=== PATIENT | female | born 1930 | race African-American/Black ===

== ENCOUNTER 2016-09-07 21:30 | Inpatient (IN) | payer MEDICARE ==
[~2016-09-07] VITALS: Ht 165.1 cm; Wt 68.0 kg
[~2016-09-07 21:30] MED LIST: ARICEPT10 MG PO; ATARAX 25 MG TA25 MG PO; CALMOSEPTINE OI71 GM TOPICAL; COZAAR100 MG PO; FOLIC ACID1 MG PO; METHOTREXATE2.5 MG PO; PREDNISONE5 MG PO; TRIAMCINOLONE A60 M1 TP; TYLENOL W/CODEI1 TAB PO
[2016-09-07 22:16] LABS: BASOPHILS 0.3 % (0.0-2.0); EOSINOPHILS 3.3 % (0-7); HEMATOCRIT 30.1 % (36.0-48.0); HEMOGLOBIN 9.5 g/dL (12-16); IMMATURE GRANULOCYTES 0.6 % (0-5); LYMPHOCYTES 47.4 % (15-50); MCH 29.4 pg (26.0-34.0); MCHC 31.6 g/dL (31.0-37.0); MCV 93.2 fL (80.0-100.0); MEAN PLATELET VOLUME 10.3 fL (7.4-10.4); MONOCYTES 15.9 % (2-11); NEUTROPHILS 32.5 % (40-80); RBC 3.23 10x6/uL (4.00-5.40); RDW 15.1 % (11.5-14.5); WBC 3.3 10x3/uL (4.8-10.8)
[2016-09-07 22:24] LABS: PLATELET COUNT 122 10x3/uL (130-400)
[2016-09-07 22:39] LABS: ALBUMIN 3.2 g/dL (3.4-5.0); ANION GAP 16.6 mmol/L (8-16); BILIRUBIN - TOTAL 0.33 mg/dL (0.2-1.3); CALCIUM 9.6 mg/dL (8.5-10.1); CARBON DIOXIDE 21.3 mmol/L (21.0-32.0); CREATININE - SERUM 2.4 mg/dL (0.6-1.3); POTASSIUM - SERUM 5.9 mmol/L (3.5-5.1)
[2016-09-07 22:42] LABS: APPEARANCE CLEAR (CLEAR); BILIRUBIN NEGATIVE (NEGATIVE); COLOR YELLOW (YELLOW); GLUCOSE NEGATIVE (NEGATIVE); KETONE NEGATIVE (NEGATIVE); LEUKOCYTE ESTERASE NEGATIVE (NEGATIVE); NITRITE NEGATIVE (NEGATIVE); PROTEIN NEGATIVE (NEGATIVE); SPECIFIC GRAVITY 1.015 (1.005-1.020); UROBILINOGEN NORMAL (NORMAL)
--- NOTE | 2016-09-08 00:55 | NUR ---
RECIEVED PT TO FLOOR VIA STRETCHER, ER STAFF AND FAMILY. PT IS ALERT AND ORIENTED BUT WITH END STAGE DEMENTIA. IV IS PATENT AND SALINE LOC AT THIS TIME. PT STATES SHE HAS NOT BEEN AMBULATORY VERY WELL TODAY SECONDARY TO WEAKNESS AND IS REQUESTING TO BE USING A BEDPAN. ASSISSTED ON AND OFF BEDPAN AT THIS TIME. VSS. PT AND FAMILY ORIENTED TO ROOM AND USE OF CALL LIGHT. NO NEEDS ARE VOICED. WILL MONITOR. SIDE RAILS ARE UP X 2. BED IS IN LOWEST POSITION. BED ALARM PLACED FOR SAFETY. CALL LIGHT IS IN REACH.
[2016-09-08 01:47] VITALS: BP 153/61; BMI 25.0
--- NOTE | 2016-09-08 01:47 | NUR ---
ADMIT ASSESSMENT COMPLETED. PT HOOKED UP TO FLUIDS PER ORDER. DENIES FURTHER NEEDS. WILL MONITOR. FAMILY AT BEDSIDE. SIDE RAILS X 2. BED LOW. BED ALARM ON. CALL LIGHT IN REACH.
[2016-09-08] MEDS ORDERED: PAROXETINE HCL10 MG PO (02:16)
--- NOTE | 2016-09-08 07:15 | NUR ---
SLEEPING QUIETLY AT PRESENT N/C AT PRESENT N/C.
--- NOTE | 2016-09-08 09:00 | NUR ---
WATCHING TV QUIETLY AT PRESENT N/C AT PRESENT.
[2016-09-08 10:20] VITALS: BP 148/56
--- NOTE | 2016-09-08 11:00 | NUR ---
SLEEPING RESP EVEN AND UNLABORED AT PRESENT.
--- NOTE | 2016-09-08 13:00 | NUR ---
DAUGHTER AT BEDSIDE AT PRESENT DENIES ANY NEEDS AT PRESENT IV CONT AT 100CC/HR/RTFA.
[2016-09-08 13:16] VITALS: Ht 165.1 cm; Wt 68.0 kg
[2016-09-08 13:50] VITALS: BP 160/59
--- NOTE | 2016-09-08 15:00 | NUR ---
REPOSITIONED FOR COMFORT AT PRESENT.
[2016-09-08 16:58] VITALS: BP 146/56
--- NOTE | 2016-09-08 17:00 | NUR ---
PLACED ON BEDPAN VOIDED LARGE AMT OF URINE AT PRESENT.
--- NOTE | 2016-09-08 19:00 | NUR ---
DAUGHTER AT BEDSIDE DENIES ANY NEEDS AT THIS TIME.
[2016-09-08 21:00] VITALS: BP 151/51
[2016-09-09 00:21] VITALS: BP 187/77
--- NOTE | 2016-09-09 02:00 | NUR ---
PT IN BED BEING ASSISTED WITH BED SCHWARZ. SIDE RAILS ARE UP X 2. BED IS LOW. CALL LIGHT IS IN REACH.
[2016-09-09 05:00] VITALS: BP 189/68
--- NOTE | 2016-09-09 07:30 | NUR ---
PT ASSESSMENT COMPLETE NO ACUTE DISTRESS NOTED VOICES DAUGHTER AT BEDSIDE. IS CONFUSED TO TIME AND SITUATION ON BED SCHWARZ OFTEN NEEDED. TAKES MEDS WHOLE WILL MONITOR
--- NOTE | 2016-09-09 08:21 | HP ---
PATIENT: SHARONA HOUSE V MEDICAL RECORD: [id number] ACCOUNT: [id number] LOCATION:[id number] : [birth year] ADMISSION DATE: 09/08/16 HISTORY AND PHYSICAL EXAMINATION DATE OF ADMISSION: 09/08/2016. CHIEF COMPLAINT: Weakness, nausea and vomiting. HISTORY OF PRESENT ILLNESS: An 86-year-old -Greek female with worsening dementia and myeloproliferative disorder, reportedly has been treated for UTI by Dr. Jain recently. Over the last couple of weeks, her daughter states she is getting weaker and weaker and having more trouble getting up and walking, though she has home health physical therapy coming out twice a week. The last couple of days, she really got weak and started having some nausea and vomiting. She has had decreased p.o. intake over the last couple of days. She states she is sore all over. In the ER, her potassium was high at 5.8. Her creatinine was up at 2.4. The rest of her lab looked fairly stable. She does have a history of myeloproliferative disorder, followed by Dr. Jain. She is admitted for further evaluation. PAST MEDICAL AND SURGICAL HISTORY: Again, worsening dementia, hypertension, myeloproliferative disorder, history of polymyositis, previously followed by Dr. Wilder, but has not seen him in a couple of years. She has had 1 cervical spine surgery done with fusion of the cervical vertebrae C3, C4, C5 and C6 by Dr. Staton. She has had 3 lumbar spine surgeries with screws and rods. She has had right rotator cuff tear, but no surgery. She has a history of arthritis and reflux. HOME MEDICATIONS: Donepezil 10 mg once a day, folic acid 1 mg once a day, Tylenol #3 q.4 hours p.r.n. pain, losartan 100 mg a day, Paxil 10 mg a day, hydroxyzine 25 mg p.r.n. each. ALLERGIES: REPORTEDLY TO CODEINE, but she takes Tylenol #3 without problems. ALSO ALLERGIES NOTED TO MACROBID AND PENICILLIN. SOCIAL HISTORY: Retired and . Her daughter and lives with her. HABITS: Never smoked. No alcohol or drugs. FAMILY HISTORY: Father had cancer. Mother had hypertension. REVIEW OF SYSTEMS: GENERAL: Getting weaker, though it does not seem that she has lost any weight. HEENT: No sinus or allergy problems. RESPIRATORY: No history of emphysema or asthma. CARDIAC: No history of heart disease. GASTROINTESTINAL: She has had chronic GI pains and problems, last colonoscopy with Dr. Berkowitz was several years ago. GENITOURINARY: She has had occasional UTIs. MUSCULOSKELETAL: Polymyositis, degenerative arthritis, multiple spine surgeries. NEUROLOGICAL: She has worsening dementia. PSYCHIATRIC: Now, depression. HISTORY AND PHYSICAL [id number] HOUSE,SHARONA V PHYSICAL EXAMINATION: VITAL SIGNS: Temperature 99.0, pulse 63, respirations 26, blood pressure 153/61. GENERAL: She wakes, does not appear in acute distress. She is pleasantly confused. HEENT: Grossly within normal limits. NECK: Supple. No JVD or bruit. HEART: Regular rate and rhythm without murmur. LUNGS: Fairly clear. ABDOMEN: Mild diffuse tenderness. No guarding, no rebound, and no mass. EXTREMITIES: Generally, tender to touch, but do not appreciate any pitting edema. LABORATORY DATA: Urinalysis is normal. CBC with a white count of 3300, which was fairly normal for Her. H&H 9.5 and 30.1, platelets number 122,000. Basic metabolic panel: Sodium 136, potassium 5.8, chloride 104, CO2 of 21.3. BUN 30, creatinine 2.4, glucose 93, calcium 9.6. Liver functions are all normal. DIAGNOSTIC DATA: CT of the head shows age-related decline. ASSESSMENT: 1. Dehydration. 2. Dementia. 3. Hypertension. PLAN: IV fluids. I did not see anything to treat with antibiotics at all. I think a lot of her problem is her progressive decline due to dementia. She and her daughter do report that she is having some restless leg symptoms at night. Other tests and procedures as warranted. I expect her to be discharged in the next 24 hours or so. TRANSINT:[id number] Voice Confirmation ID: [id number] DOCUMENT ID: [id number] BRADFORD WOOD MD at 0821 CC: [id number] DICTATION DATE: 09/08/16829 HOME STEREO EQUIPMENT INSTALLER: 09/08/16 [address] [facility] [address] [place] [address]
[2016-09-09 08:29] VITALS: BP 167/69
--- NOTE | 2016-09-09 12:44 | NUR ---
PT WITH NO DISTRESS NTOED VOICES NEEDS DAUGHTER AT SIDE
[2016-09-09 13:36] VITALS: BP 164/65
[2016-09-09 14:59] VITALS: BP 138/57
[2016-09-09 19:00] VITALS: BP 168/65
[2016-09-10 04:00] VITALS: BP 174/74
[2016-09-10 05:14] LABS: BASOPHILS 0.3 % (0.0-2.0); EOSINOPHILS 4.6 % (0-7); HEMATOCRIT 28.3 % (36.0-48.0); HEMOGLOBIN 8.9 g/dL (12-16); IMMATURE GRANULOCYTES 0.3 % (0-5); LYMPHOCYTES 48.3 % (15-50); MCH 29.5 pg (26.0-34.0); MCHC 31.4 g/dL (31.0-37.0); MCV 93.7 fL (80.0-100.0); MEAN PLATELET VOLUME 9.8 fL (7.4-10.4); MONOCYTES 12.5 % (2-11); PLATELET COUNT 115 10x3/uL (130-400); RBC 3.02 10x6/uL (4.00-5.40); RDW 15.1 % (11.5-14.5); WBC 3.3 10x3/uL (4.8-10.8)
[2016-09-10 05:39] LABS: ANION GAP 12.9 mmol/L (8-16); CALCIUM 8.7 mg/dL (8.5-10.1); CARBON DIOXIDE 22.5 mmol/L (21.0-32.0); CREATININE - SERUM 1.5 mg/dL (0.6-1.3); POTASSIUM - SERUM 5.4 mmol/L (3.5-5.1)
[2016-09-10 08:24] VITALS: BP 167/74
--- NOTE | 2016-09-10 09:15 | NUR ---
ASSESSMENT COMPLETE, VS STABLE. IV INTACT. NO COMPLAINTS AT THIS TIME. CALL LIGHT WITHIN REACH. PATIENT LAYING ON BACK. NO SIGNS OF DISTRESS. FAMILY AT BEDSIDE. CALL LIGHT WITHIN REACH.
--- NOTE | 2016-09-10 12:00 | NUR ---
PATIENT IN BED WITH EYES CLOSED RESTING QUIETLY. LAYING ON SIDE WITH BSCDS ON. FAMILY AT BEDSIDE. CALL LIGHT WITHIN REACH.
[2016-09-10 13:07] VITALS: BP 146/74
[2016-09-10 13:55] LABS: CKMB 21.1 U/L (0.0-3.6); CREATINE KINASE 640 UL (21-215); TROPONIN-I 0.031 ng/mL (0.000-0.060)
[2016-09-10 15:36] LABS: CREATINE KINASE 601 UL (21-215); TROPONIN-I 0.021 ng/mL (0.000-0.060)
[2016-09-10 15:50] VITALS: BP 149/59
[2016-09-10 16:04] LABS: CKMB 18.2 U/L (0.0-3.6)
--- NOTE | 2016-09-10 18:23 | NUR ---
PATIENT IN BED LAYING ON SIDE WITH IV INTACT. NO COMPLAINTS. BSCDS ON. FAMILY AT BEDSIDE. CALL LIGHT WITHIN REACH.
[2016-09-10 19:00] VITALS: BP 142/53
--- NOTE | 2016-09-10 20:10 | NUR ---
AWAKE,ALERT.SKIN WARM DRY,RESP EVEN AND UNLABORED.ABD SOFT NONDISTENDED WITH BOWEL SOUNDS PRESENT. INCONTINET OF B/B.GALINA CARE WITH EACH CHANGE GIVEN. IV NS INFUSING TO RIGHT FOREARM AT 100CC/HR. SR UP X 2 CL IN REACH.FAMILY AT BEDSIDE,
[2016-09-10 21:12] LABS: CKMB 18.3 U/L (0.0-3.6); CREATINE KINASE 548 UL (21-215); TROPONIN-I 0.027 ng/mL (0.000-0.060)
--- NOTE | 2016-09-11 01:32 | NUR ---
RESTING QUIETLY. NO DISTRESS NOTED. FAMILY REMAINS AT BEDSIDE.
[2016-09-11 04:00] VITALS: BP 164/53
--- NOTE | 2016-09-11 05:42 | NUR ---
EYES CLOSED RESPIRATIONS WITH EASE AND UNLABORED.
--- NOTE | 2016-09-11 06:30 | NUR ---
NO CHANGE IN ASSESSMENT. CL IN REACH
--- NOTE | 2016-09-11 07:15 | NUR ---
SLEEPING QUIETLY AT PRESENT RESP EVEN AND UNLABORED AT PRESENT DAUGHTER AT BEDSIDE.
[2016-09-11 08:08] VITALS: BP 178/69
--- NOTE | 2016-09-11 09:00 | NUR ---
QUIET IN ROOM AT PRESENT DENIES ANY NEEDS AT PRESENT IV CONT AT 100CC/HR/IVAC.
--- NOTE | 2016-09-11 09:54 | NUR ---
Patient Name: SHARONA HOUSE Admission Status: ER Accout number: [id number] Admission Date: 09-09-2016 : 1930 Admission Diagnosis: Attending: VIKAS Current LOS: 2 Anticipated DC Date: 09-15-2016 Planned Disposition: Home with Home Health Primary Insurance: MEDICARE A & B Discharge Planning Comments: CM MET WITH PATIENT AND DAUGHTER (KIRAN) REGARDING D/C NEEDS AND PLANS. PATIENTS DAUGHTER WILL DRIVE HER HOME WHEN DISCHARGED. PATIENT HAS A WHEELCHAIR AND WALKER AT HOME. PATIENTS DAUGHTER HELPS WITH HER BATH, DRESSING, AND MEDS. PATIENT CAN FEED HERSELF PER DAUGHTER. PATIENT HAS 2 STEPS W/RAILS TO ENTER HOME AND NO STAIRS INSIDE HOME. PATIENTS PCP IS DR. WOOD AND PHARMACY IS [facility]. PATIENT IS CURRENT WITH [facility] WITH PT. CM WILL CONTINUE TO FOLLOW PATIENT WITH D/C NEEDS AND PLANS. PCP DR. ISRAEL MARTINEZ ON [facility]- [phone] KIRAN (DAUGHTER) [phone] [facility] (CURRENT) [phone] Seasonal Package Handler: Di Tavares Is the patient Alert and Oriented? Yes 0 * How many steps to enter\exit or inside your home? 2 W/RAILS 0 * PCP DR. WOOD 0 * Pharmacy [facility] 0 * Preadmission Environment Home with Family 0 * ADLs Partial Dependent 0 * Partial ADLs (Assistance needed) Ambulation Bathing Dressing Medication Management Toileting Transfers 0 * Equipment Walker Wheelchair 0 * List name and contact numbers for known caregivers / representatives who currently or will assist patient after discharge: KIRAN (DAUGHTER) [phone] 0 * Community resources currently utilized Home Health 0 * Please name any agencies selected above. [facility] WITH PHYSICAL THERAPY 0 * Additional services required to return to the preadmission environment? Yes 0 * Can the patient safely return to the preadmission environment? Yes 0 * Has this patient been hospitalized within the prior 30 days at any hospital? No 0 Grand Total: 0
--- NOTE | 2016-09-11 10:53 | NUR ---
NUTRITION MONITORING & EVAL CHART REVIEWED. PT VISIT. DTR REPORTS PT WITH ~50% INTAKE REG DIET. WILL CONTINUE TO PROVIDE DIET, HONOR FOOD PREFERENCES. RD FOLLOWING
--- NOTE | 2016-09-11 11:00 | NUR ---
INCONT OF URINE AT PRESENT N/C AT PRESENT.
[2016-09-11 12:31] VITALS: BP 162/70
--- NOTE | 2016-09-11 14:13 | NUR ---
09/11/2016 14:00 DCP: Discharge Planning Patient Name: SHARONA HOUSE Encounter No: [id number] : 1930 Primary Insurance: MEDICARE A & B Anticipated DC Date: 09-15-2016 Planned Disposition: Home with Home Health External Planned Provider: Brandie @ [facility] DCP follow-up note: DC order rec'd. Family in agreement with discharge plan. No changes to plan. Notified Radha with [facility] of discharge this afternoon. DC/ order faxed. Mili Acosta
--- NOTE | 2016-09-11 14:43 | NUR ---
IV REMOVED CATH IN TACT SITE CLEAN AND DRY WITHOUT REDDNESS OR EDEMA NOTED.
--- NOTE | 2016-09-11 15:58 | NUR ---
DISCHARGE INSTURCTIONS GONE OVER WITH DAUGHTER DEMONSTRATES UNDERSTANDING AT PRESENT.LEFT VIA W/C AT PRESENT.
== END 2016-09-11 16:03 | disposition home health service (06) | DRG 641 ==
LOC: D.ER 21:30 → OBSVTIME 09-08 00:13 → D.MS 09-08 00:13
PROVIDERS: Family Medicine; ADMIT Family Medicine
DX: E86.0 Dehydration (principal); D61.818 Other pancytopenia; I10 Essential (primary) hypertension; R53.1 Weakness; D46.9 Myelodysplastic syndrome, unspecified; F03.90 Unspecified dementia, unspecified severity, without behavioral disturbance, psychotic disturbance, mood disturbance, and anxiety